=== PATIENT | female | born 1965 ===

== ENCOUNTER 2022-02-10 02:48 | Emergency (ER) | payer MEDICARE ==
[2022-02-10] MEDS ORDERED: Orphenadrine 60 MG/2 ML Inj IM ONE (16:40)
[2022-02-10] MEDS ORDERED: Ketorolac 30 MG/ML SDV IM ONE (17:35)
== END 2022-02-10 17:40 | disposition home or self-care (01) ==
LOC: DL.ED 02:48
DX: M54.42 Lumbago with sciatica, left side (principal); I10 Essential (primary) hypertension; E11.9 Type 2 diabetes mellitus without complications; E78.00 Pure hypercholesterolemia, unspecified
CPT/HCPCS: 96372; 99283